=== PATIENT | male | born 1940 | race Caucasian/White ===

== ENCOUNTER 2018-11-02 22:49 | Emergency (ER) | payer MEDICAID, OTHER, SELFPAY ==
[~2018-11-02] VITALS: Ht 175.3 cm; Wt 76.7 kg
[2018-11-02] MEDS ORDERED: LIDOCAINE-MPF 1%, 5ML ONE (23:28)
[2018-11-02] MEDS ORDERED: LIDOCAINE-MPF 1%, 5ML INFIL ONE (23:30)
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
[2018-11-02] MEDS ORDERED: CEFAZOLIN PMX 1GM/50ML 50 ML ONE (23:58)
[2018-11-03] MEDS ORDERED: CEFAZOLIN PMX 1GM/50ML 50 ML IV ONE
[2018-11-03] MEDS ORDERED: SODIUM CHLORIDE FLUSH 10ML SYR IVF ONE
[2018-11-03] MEDS ORDERED: COCAINE TOPICAL SOLN 4%, 4ML ONE (00:25)
[2018-11-03] MEDS ORDERED: LIDOCAINE 1%-EPI 1:100K, 20ML ONE (00:25)
[2018-11-03] MEDS ORDERED: COCAINE TOPICAL SOLN 4%, 4ML TP ONE (00:30)
[2018-11-03] MEDS ORDERED: DIPH,PERTUSS(ACELL),TET VAC/PF 0.5 ML IM-VACC ONE ×2 (00:30→01:42)
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
[2018-11-03 00:56] VITALS: BP 138/62
[2018-11-03] MEDS ORDERED: NEOSPORIN OINT. PKT 1 PACKET ONE (01:12)
[2018-11-03] MEDS ORDERED: OXYcodone/APAP 10/325MG TABLET ONE (01:42)
[2018-11-03] MEDS ORDERED: OXYcodone/APAP 10/325MG TABLET PO ONE (02:00)
== END 2018-11-03 02:10 | disposition home or self-care (01) ==
LOC: ED 11-03 01:58
DX: S02.2XXB Fracture of nasal bones, initial encounter for open fracture (principal); Z87.891 Personal history of nicotine dependence; Y04.8XXA Assault by other bodily force, initial encounter; Y93.89 Activity, other specified; Y92.89 Other specified places as the place of occurrence of the external cause; Y99.8 Other external cause status
CPT/HCPCS: 12051; 13152; 70450; 70486; 90471; 90715; 96365; 99285; J0690